=== PATIENT | male | born 1955 | race Caucasian/White ===

== ENCOUNTER → 2017-06-15 | Outpatient (CLI) | payer OTHER ==
[2017-06-15 12:55] LABS: ALT/SGPT 32 U/L (12-78); AST/SGOT 23 U/L (15-37); BLOOD UREA NITROGEN 12 mg/dl (7-18); BUN/CREATININE RATIO 11.8 (10-20); CALCIUM 8.6 mg/dl (8.5-10.1); CARBON DIOXIDE 30 mmol/L (21-32); CHLORIDE 94 mmol/L (98-107); GLUCOSE 92 mg/dl (70-99); POTASSIUM 4.2 mmol/L (3.5-5.1); SODIUM 130 mmol/L (136-145)
[2017-06-15 13:06] LABS: ALB/GLOB RATIO 1.3 (0.9-2); ALKALINE PHOSPHATASE 66 U/L (45-117); CHOLESTEROL 168 mg/dl (0-200); CHOLESTEROL/HDL RATIO 2.9; HDL CHOLESTEROL 57 mg/dl; LDL CHOLESTEROL CALCULATED 84 mg/dl; PROSTATE SPECIFIC ANTIGEN 0.612 ng/ml (0.000-4.000); TRIGLYCERIDES 134 mg/dl (0-150); VERY LOW DENSITY LIPOPROT CALC 27 mg/dl
== END | disposition home or self-care (01) ==
LOC: C.LABPBG 09:21
PROVIDERS: ATTEND Internal Medicine
DX: E87.1 Hypo-osmolality and hyponatremia (principal); I10 Essential (primary) hypertension; E78.5 Hyperlipidemia, unspecified; Z12.5 Encounter for screening for malignant neoplasm of prostate

== ENCOUNTER 2021-05-10 08:25 | Observation (INO) ==
[2021-05-10] MEDS ORDERED: ONDANSETRON INJ 2 MG/ML 2 ML VIAL IV STA (09:25)
[2021-05-10] MEDS ORDERED: LORazepam 1 MG/2 ML VIAL IV STA (09:25)
[2021-05-10] MEDS ORDERED: SODIUM CHLORIDE 0.9% 1000ML 1,000 ML IV SCH ×2 (09:26→13:15)
[2021-05-10 09:47] LABS: Hematocrit (blood only) 44.5 % (42-52); Immature Granulocytes # (auto) 0.02 K/uL (0.00-0.02); Immature Granulocytes % (auto) 0.2 %; Lymphocytes # (auto) 0.59 K/uL (1.2-3.4); Lymphocytes % (auto) 6.7 %; Mean Corpuscular Volume 86.2 fL (80-100); Mean Platelet Volume 11.3 fL (7.4-10.4); Monocytes # (auto) 0.28 K/uL (0.11-0.59); Monocytes % (auto) 3.2 %; Neutrophils # (auto) 7.86 K/uL (1.4-6.5); Neutrophils % (auto) 89.9 %; Platelet Count 167 K/uL (130-400); RDW Coefficient of Variation 12.5 % (11.5-14.5); RDW Standard Deviation 39.7 fL (36.4-46.3); Red Blood Count 5.16 M/uL (4.7-6.1); White Blood Count 8.75 K/uL (4.8-10.8)
--- NOTE | 2021-05-10 09:54 | Emergency Department Note ---
History of Present Illness General Chief complaint: Dizziness Stated complaint: DIZZINESS, NAUSEA Time Seen by Provider: 05/10/21 09:02 History of Present Illness Maximum Pain Intensity: 0 Patient is a 65-year-old male with past medical history significant for hypertension, dyslipidemia, history of chronic hyponatremia, and vitamin D deficiency who presents the emergency department for evaluation of acute dizziness that started yesterday around noon. He states that he was feeling wel l and was in his usual state of health until around noon yesterday. He was doing some work on a motorcycle in his garage, when all of a sudden he was having trouble walking. He states that he "could not walk in a straight line.". He had to hold onto his truck to move around the garage. He states it felt like he was drunk. He eventually made it back into the house, where he lie down in his recliner. While he was laying down, he felt fine, but anytime he got up and walked, he would get acutely dizzy, nauseous and vomit. This happened several times throughout the evening and persisted through this morning. There was no associated headache. No chest pain, palpitations or shortness of breath. No difficulty with speech, facial droop or extremity weakness. His is concerned he could be dehydrated because he has not been able to eat or drink. He does note that he has had very brief spells of dizziness on and off over the last 2 months. They only last him for a few minutes, and never make him nauseous or vomit. It has never lasted him this long. He did not try taking any medications for his symptoms yesterday. He did not take his morning medications today. He does not have any abdominal pain. Home Medications Medication Instructions Recorded Confirmed Type aspirin 81 mg tablet,delayed 81 mg PO QAM #90 tab 09/02/19 05/10/21 History release clobetasol 0.05 % topical cream See Rx Instructions .ROUTE 09/02/19 05/10/21 History .COMPLEX #60 gm atenolol 25 mg PO QAM 05/10/21 05/10/21 History atorvastatin 20 mg PO QAM 05/10/21 05/10/21 History cholecalciferol (vitamin D3) 2,000 units PO QAM 05/10/21 05/10/21 History hydrochlorothiazide 12.5 mg PO QAM 05/10/21 05/10/21 History lisinopril 10 mg PO QAM 05/10/21 05/10/21 History Allergies Allergy/AdvReac Type Severity Reaction Status Date / Time No Known Drug Allergies Allergy Verified 05/10/21 09:35 Past Med/Surg History Medical History Chronic hyponatremia Family history of colon cancer HTN (hypertension) Hyperlipidemia Systolic murmur Surgical History No history of previous surgery Family History Mother Colorectal cancer Father Diabetes Colorectal cancer Denies family history of Ovarian cancer Prostate cancer Myocardial infarction Breast cancer Social History Smoking Status: Never smoker Hx Alcohol Use: Yes Hx Substance Use: No Preferred Language: Ghanaian Communication Ability: Effective Visual Impairment: No Limitations Hearing Ability: Normal Motors And Controls Tester Required: No Beliefs That Will Affect Care: None marital status: Current Living Situation: Spouse current occupational status: retired Other Information That Helps Us Care for You: No Feels Safe at Home: Yes Safety Concerns: Feels Safe At This Time caffeine: Yes during the past year weight has: remained stable Dental Care, Regularly: No Physical Activity Frequency: 5-6 Times per Week Seatbelt Use: always Sunscreen Use: Yes Assistive Devices: None Review of Systems A total of 10 systems reviewed and were otherwise negative Physical Exam Vital Signs Vital Signs - 24 hr 05/10/21 08:28 05/10/21 09:50 05/10/21 10:00 Temperature 35.9 C L Temperature Source Temporal Artery Scan Pulse Rate 85 80 85 Pulse Rate from SpO2 Sensor 83 85 Pulse Rhythm Regular Pulse Strength Normal Respiratory Rate 16 16 12 Respiratory Effort / Characteristics Non-Labored Respiratory Depth Normal Respiratory Pattern Regular Blood Pressure 172/91 H 146/100 H Blood Pressure Mean 118 115 Blood Pressure Position Sitting Pulse Oximetry 99 97 98 Oxygen Delivery Method Room Air Room Air Room Air Sepsis Recent Fever Within 48 Hours No Sepsis New/Unexplained Change in Mental Status N/A Sepsis Action Taken by Nursing No Action Required 05/10/21 10:15 05/10/21 10:30 05/10/21 10:58 Temperature Temperature Source Pulse Rate 80 82 99 H Pulse Rate from SpO2 Sensor 80 82 97 H Pulse Rhythm Pulse Strength Respiratory Rate 16 18 17 Respiratory Effort / Characteristics Respiratory Depth Respiratory Pattern Blood Pressure 157/87 H Blood Pressure Mean 110 Blood Pressure Position Pulse Oximetry 97 96 97 Oxygen Delivery Method Room Air Room Air Sepsis Recent Fever Within 48 Hours Sepsis New/Unexplained Change in Mental Status Sepsis Action Taken by Nursing 05/10/21 11:00 05/10/21 11:01 05/10/21 11:15 Temperature Temperature Source Pulse Rate 90 90 81 Pulse Rate from SpO2 Sensor 90 91 H 82 Pulse Rhythm Pulse Strength Respiratory Rate 16 28 H 19 Respiratory Effort / Characteristics Respiratory Depth Respiratory Pattern Blood Pressure 152/81 H Blood Pressure Mean 104 Blood Pressure Position Pulse Oximetry 97 97 95 Oxygen Delivery Method Sepsis Recent Fever Within 48 Hours Sepsis New/Unexplained Change in Mental Status Sepsis Action Taken by Nursing 05/10/21 11:30 05/10/21 11:31 05/10/21 11:32 Temperature Temperature Source Pulse Rate 80 83 80 Pulse Rate from SpO2 Sensor 81 83 80 Pulse Rhythm Pulse Strength Respiratory Rate 21 23 15 Respiratory Effort / Characteristics Respiratory Depth Respiratory Pattern Blood Pressure 156/77 H 152/80 H Blood Pressure Mean 103 104 Blood Pressure Position Pulse Oximetry 97 98 97 Oxygen Delivery Method Sepsis Recent Fever Within 48 Hours Sepsis New/Unexplained Change in Mental Status Sepsis Action Taken by Nursing 05/10/21 11:45 05/10/21 12:00 05/10/21 12:01 Temperature Temperature Source Pulse Rate 79 78 77 Pulse Rate from SpO2 Sensor 79 78 78 Pulse Rhythm Pulse Strength Respiratory Rate 17 15 19 Respiratory Effort / Characteristics Respiratory Depth Respiratory Pattern Blood Pressure 161/72 H Blood Pressure Mean 101 Blood Pressure Position Pulse Oximetry 96 96 97 Oxygen Delivery Method Sepsis Recent Fever Within 48 Hours Sepsis New/Unexplained Change in Mental Status Sepsis Action Taken by Nursing 05/10/21 12:15 05/10/21 12:30 05/10/21 12:45 Temperature Temperature Source Pulse Rate 92 H 88 87 Pulse Rate from SpO2 Sensor 91 H 88 88 Pulse Rhythm Pulse Strength Respiratory Rate 16 20 17 Respiratory Effort / Characteristics Respiratory Depth Respiratory Pattern Blood Pressure Blood Pressure Mean Blood Pressure Position Pulse Oximetry 98 98 97 Oxygen Delivery Method Sepsis Recent Fever Within 48 Hours Sepsis New/Unexplained Change in Mental Status Sepsis Action Taken by Nursing 05/10/21 12:57 05/10/21 13:00 05/10/21 13:01 Temperature Temperature Source Pulse Rate 96 H 94 H 92 H Pulse Rate from SpO2 Sensor 94 H 92 H 92 H Pulse Rhythm Pulse Strength Respiratory Rate 17 21 24 Respiratory Effort / Characteristics Respiratory Depth Respiratory Pattern Blood Pressure 181/97 H 176/94 H Blood Pressure Mean 125 121 Blood Pressure Position Pulse Oximetry 99 98 97 Oxygen Delivery Method Sepsis Recent Fever Within 48 Hours Sepsis New/Unexplained Change in Mental Status Sepsis Action Taken by Nursing 05/10/21 13:15 05/10/21 13:30 05/10/21 13:31 Temperature Temperature Source Pulse Rate 93 H 84 85 Pulse Rate from SpO2 Sensor 94 H 84 86 Pulse Rhythm Pulse Strength Respiratory Rate 31 H 18 19 Respiratory Effort / Characteristics Respiratory Depth Respiratory Pattern Blood Pressure 150/85 H Blood Pressure Mean 106 Blood Pressure Position Pulse Oximetry 98 96 97 Oxygen Delivery Method Sepsis Recent Fever Within 48 Hours Sepsis New/Unexplained Change in Mental Status Sepsis Action Taken by Nursing 05/10/21 13:45 05/10/21 14:00 05/10/21 14:01 Temperature Temperature Source Pulse Rate 81 89 89 Pulse Rate from SpO2 Sensor 81 90 90 Pulse Rhythm Pulse Strength Respiratory Rate 23 20 17 Respiratory Effort / Characteristics Respiratory Depth Respiratory Pattern Blood Pressure 156/85 H Blood Pressure Mean 108 Blood Pressure Position Pulse Oximetry 96 98 97 Oxygen Delivery Method Sepsis Recent Fever Within 48 Hours Sepsis New/Unexplained Change in Mental Status Sepsis Action Taken by Nursing 05/10/21 14:15 05/10/21 14:30 05/10/21 15:00 Temperature Temperature Source Pulse Rate 96 H 88 97 H Pulse Rate from SpO2 Sensor 95 H 89 99 H Pulse Rhythm Pulse Strength Respiratory Rate 25 H 27 H 23 Respiratory Effort / Characteristics Respiratory Depth Respiratory Pattern Blood Pressure 153/77 H 173/97 H Blood Pressure Mean 102 122 Blood Pressure Position Pulse Oximetry 98 98 99 Oxygen Delivery Method Sepsis Recent Fever Within 48 Hours Sepsis New/Unexplained Change in Mental Status Sepsis Action Taken by Nursing CONSTITUTIONAL: Patient is a well-appearing 65-year-old male who is awake and alert and laying on the gurney in no acute distress. HEENT: Normocephalic, atraumatic. Pupils equal, round, reactive to light and accommodation. EOMs intact with a few beats of lateral nystagmus bilaterally. Sclera are anicteric. Tympanic membranes intact, with normal landmarks. External canals are clear. Oral and nasopharynx are clear. Mucous membranes ar e moist. NECK: Supple, nontender, no lymphadenopathy. Full range of motion. HEART: Regular rate and rhythm, soft systolic ejection murmur noted. LUNGS: Breath sounds equal and clear to auscultation without wheezes, rales, or rhonchi heard. ABDOMEN: Bowel sounds are present. Abdomen is soft, nontender, nondistended. No guarding or rebound. SKIN: No lesions or rash, normal skin turgor. EXTREMITIES: No cyanosis, edema, joint tenderness or swelling. No deformity. NEUROLOGICAL: Alert and oriented x4. Cranial nerves 2 through 12, sensation and strength grossly intact. Upper and lower extremity strength and DTRs are equal and symmetrical bilaterally. Gait is unable to be assessed due to the patient's acute complaint. Negative pronator drift. Finger to nose, finger to finger and rapid alternating movements are intact. The patient did become symptomatically dizzy when I sat him up from a laying down position to perform neuro exam. Course Course The patient was seen and assessed as above. Old records are reviewed. He presents the emergency department for evaluation of acute dizziness with associated nausea and vomiting that started yesterday. There does appear to be a positional component to his symptoms. IV lock was initiated and laboratory studies were collected. He was placed on the construction code administrator and EKG was performed. Chest x-ray and head CT/head and neck angios were obtained. CBC with differential, CMP, magnesium, troponin, coags were obtained. Patient was hydrated with normal saline solution and treated with Zofran for nausea and Ativan 1 mg IV for his dizziness. Laboratory studies note a normal white count at 8700. No anemia. Left shift noted but no bandemia. Coags are within normal limits. Sodium is slightly low at 130, this is chronic and appears stable for the patient. No other electrolyte abnormalities noted. BUN 18, creatinine 0.94. Transaminases are normal. Troponin is negative x1. Chest x-ray is unremarkable. Head CT is without acute mass, hematoma, shift or infarct. Head CTA is without significant stenosis, occlusion or aneurysm within the [place]. There is focal moderate to severe stenosis at the takeoff of the left internal carotid artery of about 70%, otherwise no significant stenosis occlusion or dissection identified in the right carotid or the vertebral arteries. The patient was reassessed. All laboratory diagnostic imaging studies were reviewed with him and his . He reported that while laying in bed, he was feeling improved, with no longer nauseous, but has not really been up to see if he is still dizzy. Discussed an ambulatory trial to see how he does. Nursing staff came to me after the patient had been walked, he did not do well and was still quite off balance and dizzy, which the patient endorsed. He was o rdered additional IV fluids and meclizine 25 mg orally. Reviewed the patient again with Dr. Lew, at this point it seems reasonable that he should be brought into the hospital for additional work-up and care. This was reviewed with the patient and his and they were in agreement. [facility]. Patient was reviewed with Dr. Banres, please refer to his H&P and orders for further information. Cardiac monitoring: An order was placed for continuous cardiac monitoring. The monitor shows a normal sinus rhythm in the 80s to low 90s. Administered Medications Discontinued Medications Sodium Chloride (Nss 1000ml) 1,000 mls @ 999 mls/hr IV .Q1H1M ADILENE Stop: 05/10/21 10:26 Last Infusion: 05/10/21 16:52 Dose: 0 mls/hr Documented by: [id number] Admin: 05/10/21 09:43 Dose: 999 mls/hr Documented by: [id number] Lorazepam (Ativan) 1 mg in 2 mls @ 2 mls/min IV NOW STA Stop: 05/10/21 09:26 Last Admin: 05/10/21 09:43 Dose: 2 mls/min Documented by: [id number] Sodium Chloride (Nss 1000ml) 1,000 mls @ 250 mls/hr IV .Q4H ADILENE Stop: 06/09/21 13:14 Last Infusion: 05/10/21 17:34 Dose: 0 mls/hr Documented by: [id number] Admin: 05/10/21 14:15 Dose: 250 mls/hr Documented by: [id number] Ioversol (Optiray 320 125ml) 120 ml IV ONCE ONE Stop: 05/10/21 10:50 Last Admin: 05/10/21 10:49 Dose: 120 ml Documented by: [id number] Meclizine HCl (Meclizine Hcl 25 Mg Tab) 25 mg PO NOW STA Stop: 05/10/21 13:04 Last Admin: 05/10/21 14:15 Dose: 25 mg Documented by: [id number] Ondansetron HCl (Ondansetron Inj 2 Mg/Ml 2 Ml Vial) 4 mg IV NOW STA Stop: 05/10/21 09:26 Last Admin: 05/10/21 09:43 Dose: 4 mg Documented by: [id number] Medical Decision Making Differential Diagnosis Differential diagnoses entertained benign positional vertigo, dehydration, hypovolemia, anemia, tumor, infection, hypoglycemia, electrolyte abnormalities, cardiac sources, intracerebral event, toxicologic, neurologic, as well as other pathologies. Medical Records Attestation: I reviewed the patient's medical records. Home Medications Current Medication List: was personally reviewed by me Laboratory Data Attestation: I reviewed the patient's lab results. Result diagrams: 05/10/21 09:38 05/10/21 09:38 Lab Results 05/10/21 05/10/21 05/10/21 Range/Units 09:38 09:38 09:38 WBC 8.75 (4.8-10.8) K/uL RBC 5.16 (4.7-6.1) M/uL Hgb 16.0 (14.0-18.0) g/dL Hct 44.5 (42-52) % MCV 86.2 (80-100) fL MCH 31.0 (25-34) pg MCHC 36.0 (32-36) g/dL RDW Std Deviation 39.7 (36.4-46.3) fL RDW Coeff of Juliana 12.5 (11.5-14.5) % Plt Count 167 (130-400) K/uL MPV 11.3 H (7.4-10.4) fL Immature Gran % (Auto) 0.2 % Neut % (Auto) 89.9 % Lymph % (Auto) 6.7 % Gulf % (Auto) 3.2 % Eos % (Auto) 0.0 % Baso % (Auto) 0.0 % Neut # (Auto) 7.86 H (1.4-6.5) K/uL Lymph # (Auto) 0.59 L (1.2-3.4) K/uL [place] # (Auto) 0.28 (0.11-0.59) K/uL Eos # (Auto) 0.00 (0-0.5) K/uL Baso # (Auto) 0.00 (0-0.2) K/uL Immature Gran # (Auto) 0.02 (0.00-0.02) K/uL PT 10.5 (9.0-12.0) Seconds INR 1.0 (0.9-1.1) APTT 23.8 (21.0-31.0) Seconds PTT Ratio 0.9 Sodium 130 L (136-145) mmol/L Potassium 3.9 (3.5-5.1) mmol/L Chloride 94 L (98-107) mmol/L Carbon Dioxide 27 (21-32) mmol/L Anion Gap 9.0 (3-11) BUN 18 (7-18) mg/dl Creatinine 0.94 (0.6-1.4) mg/dl Est Cr Clr Drug Dosing Not Reportable Est GFR ( Amer) 96.8 ml/min Est GFR (Non-Af Amer) 83.6 ml/min BUN/Creatinine Ratio 19.6 (10-20) Glucose 122 H (70-99) mg/dl Calcium 9.0 (8.5-10.1) mg/dl Magnesium 2.1 (1.8-2.4) mg/dl Total Bilirubin 1.0 (0.2-1) mg/dl AST 29 (15-37) U/L ALT 31 (12-78) U/L Alkaline Phosphatase 62 (45-117) U/L Troponin I < 0.015 (0-0.045) ng/ml Total Protein 7.9 (6.4-8.2) gm/dl Albumin 4.2 (3.4-5.0) gm/dl Globulin 3.7 (2.5-4.0) gm/dl Albumin/Globulin Ratio 1.1 (0.9-2) COVID-19 Eval Order SARS-CoV-2 (PCR) (Negative) 05/10/21 05/10/21 Range/Units 14:10 14:10 WBC (4.8-10.8) K/uL RBC (4.7-6.1) M/uL Hgb (14.0-18.0) g/dL Hct (42-52) % MCV (80-100) fL MCH (25-34) pg MCHC (32-36) g/dL RDW Std Deviation (36.4-46.3) fL RDW Coeff of Juliana (11.5-14.5) % Plt Count (130-400) K/uL MPV (7.4-10.4) fL Immature Gran % (Auto) % Neut % (Auto) % Lymph % (Auto) % Gulf % (Auto) % Eos % (Auto) % Baso % (Auto) % Neut # (Auto) (1.4-6.5) K/uL Lymph # (Auto) (1.2-3.4) K/uL [place] # (Auto) (0.11-0.59) K/uL Eos # (Auto) (0-0.5) K/uL Baso # (Auto) (0-0.2) K/uL Immature Gran # (Auto) (0.00-0.02) K/uL PT (9.0-12.0) Seconds INR (0.9-1.1) APTT (21.0-31.0) Seconds PTT Ratio Sodium (136-145) mmol/L Potassium (3.5-5.1) mmol/L Chloride (98-107) mmol/L Carbon Dioxide (21-32) mmol/L Anion Gap (3-11) BUN (7-18) mg/dl Creatinine (0.6-1.4) mg/dl Est Cr Clr Drug Dosing Est GFR ( Amer) ml/min Est GFR (Non-Af Amer) ml/min BUN/Creatinine Ratio (10-20) Glucose (70-99) mg/dl Calcium (8.5-10.1) mg/dl Magnesium (1.8-2.4) mg/dl Total Bilirubin (0.2-1) mg/dl AST (15-37) U/L ALT (12-78) U/L Alkaline Phosphatase (45-117) U/L Troponin I (0-0.045) ng/ml Total Protein (6.4-8.2) gm/dl Albumin (3.4-5.0) gm/dl Globulin (2.5-4.0) gm/dl Albumin/Globulin Ratio (0.9-2) COVID-19 Eval Order Covid19 at [facility] SARS-CoV-2 (PCR) NEGATIVE (Negative) Imaging Data Attestation: I personally reviewed and interpreted this imaging study as follows: Radiologist's Impression: Chest X-Ray 05/10/21 09:21 SINGLE VIEW CHEST CLINICAL HISTORY: Dizziness. FINDINGS: An AP, portable, upright chest radiograph is obtained. No prior studies are available for comparison at the time of dictation. The cardiomediastinal silhouette is unremarkable noting atherosclerotic c alcification of the thoracic aorta. There is mild bibasilar atelectasis. The lungs and pleural spaces are otherwise clear. No pneumothorax is seen. The bony thorax is grossly intact. IMPRESSION: No active disease in the chest. ACT 112: Negative or not required by law. Electronically signed by: Rodrigue Acosta M.D. 05/10/2021 9:[address] 05/10/21 09:[address], HEAD & NECK CTA HISTORY: Dizziness. Nausea. Stroke Like Symptoms TECHNIQUE: Multiaxial CT images of the head were performed both before and after the intravenous administration of contrast to evaluate the major cerebral vessels. Multiaxial CT images of the neck were also performed following the intravenous administration of contrast to evaluate the major cervical vessels. Maximum intensity projection images were also obtained. A dose lowering technique was utilized adhering to the principles of ALARA. COMPARISON: None. FINDINGS: NONCONTRAST HEAD CT: There is no mass, hematoma, midline shift, or acute infarct. Head CTA: Visualized intracranial internal carotid arteries, distal vertebral arteries, and basilar artery are widely patent. There is no significant stenosis, occlusion, or aneurysm seen within the bilateral ACAs, MCAs, or fugitive detective. Neck CTA: The aortic arch and proximal great vessels are widely patent. The bilateral common carotid arteries and bilateral vertebral arteries are widely patent. Moderate calcified plaque within the bilateral carotid bifurcations. No significant stenosis within the right internal carotid artery. Focal moderate to severe stenosis at the takeoff of the left internal carotid artery as seen on axial image 246. This demonstrates approximately 70% stenosis. This is secondary to the atherosclerotic plaque. The remaining portions of the left internal carotid artery are patent. IMPRESSION: 1. No acute intracranial abnormality. 2. No significant stenosis, occlusion, or aneurysm within the [place]. 3. Focal moderate to severe stenosis at the takeoff of the left internal carotid artery of approximately 70%. 4. No significant stenosis, occlusion, or dissection identified within the right carotid or vertebral arteries. ACT 112: Negative or not required by law. Electronically signed by: Darrick Castaneda M.D. 05/10/2021 11:20 AM Head CTA 05/10/21 09:[address], HEAD & NECK CTA HISTORY: Dizziness. Nausea. Stroke Like Symptoms TECHNIQUE: Multiaxial CT images of the head were performed both before and after the intravenous administration of contrast to evaluate the major cerebral vessels. Multiaxial CT images of the neck were also performed following the intravenous administration of contrast to evaluate the major cervical vessels. Maximum intensity projection images were also obtained. A dose lowering technique was utilized adhering to the principles of ALARA. COMPARISON: None. FINDINGS: NONCONTRAST HEAD CT: There is no mass, hematoma, midline shift, or acute infarct. Head CTA: Visualized intracranial internal carotid arteries, distal vertebral arteries, and basilar artery are widely patent. There is no significant stenosis, occlusion, or aneurysm seen within the bilateral ACAs, MCAs, or fugitive detective. Neck CTA: The aortic arch and proximal great vessels are widely patent. The bilateral common carotid arteries and bilateral vertebral arteries are widely patent. Moderate calcified plaque within the bilateral carotid bifurcations. No significant stenosis within the right internal carotid artery. Focal moderate to severe stenosis at the takeoff of the left internal carotid artery as seen on axial image 246. This demonstrates approximately 70% stenosis. This is secondary to the atherosclerotic plaque. The remaining portions of the left internal carotid artery are patent. IMPRESSION: 1. No acute intracranial abnormality. 2. No significant stenosis, occlusion, or aneurysm within the [place]. 3. Focal moderate to severe stenosis at the takeoff of the left internal carotid artery of approximately 70%. 4. No significant stenosis, occlusion, or dissection identified within the right carotid or vertebral arteries. ACT 112: Negative or not required by law. Electronically signed by: Darrick Castaneda M.D. 05/10/2021 11:20 AM Neck CTA 05/10/21 09:[address], HEAD & NECK CTA HISTORY: Dizziness. Nausea. Stroke Like Symptoms TECHNIQUE: Multiaxial CT images of the head were performed both before and after the intravenous administration of contrast to evaluate the major cerebral vessels. Multiaxial CT images of the neck were also performed following the intravenous administration of contrast to evaluate the major cervical vessels. Maximum intensity projection images were also obtained. A dose lowering technique was utilized adhering to the principles of ALARA. COMPARISON: None. FINDINGS: NONCONTRAST HEAD CT: There is no mass, hematoma, midline shift, or acute infarct. Head CTA: Visualized intracranial internal carotid arteries, distal vertebral arteries, and basilar artery are widely patent. There is no significant stenosis, occlusion, or aneurysm seen within the bilateral ACAs, MCAs, or fugitive detective. Neck CTA: The aortic arch and proximal great vessels are widely patent. The bilateral common carotid arteries and bilateral vertebral arteries are widely patent. Moderate calcified plaque within the bilateral carotid bifurcations. No significant stenosis within the right internal carotid artery. Focal moderate to severe stenosis at the takeoff of the left internal carotid artery as seen on axial image 246. This demonstrates approximately 70% stenosis. This is secondary to the atherosclerotic plaque. The remaining portions of the left internal carotid artery are patent. IMPRESSION: 1. No acute intracranial abnormality. 2. No significant stenosis, occlusion, or aneurysm within the [place]. 3. Focal moderate to severe stenosis at the takeoff of the left internal carotid artery of approximately 70%. 4. No significant stenosis, occlusion, or dissection identified within the right carotid or vertebral arteries. ACT 112: Negative or not required by law. Electronically signed by: Darrick Castaneda M.D. 05/10/2021 11:20 AM ECG Data Attestation: I personally reviewed and interpreted this ECG as follows: Indication: + other (Dizziness) Rate (beats per minute): 87 Rhythm: + normal sinus ECG [place]: + Normal ECG ST segments: no ST depression, no ST elevation and no T-wave inversions Comparison ECG Date: no prior available MDM Narrative See ED course Impression & Plan Dizziness, Nausea & vomiting, Carotid stenosis Discharge Plan Visit Data Chief Complaint: Dizziness Stated Complaint: DIZZINESS, NAUSEA ED Provider: Matthias Lew ED Midlevel Provider: Delroy Arboleda Discharge Problem: Dizziness, Nausea & vomiting, Carotid stenosis Patient Disposition: Admitted As Inpatient Discharge Instructions Interventions: ED Discharge Assessment Last Done: 05/10/21 16:27
--- NOTE | 2021-05-10 09:59 | XRay Report ---
SINGLE VIEW CHEST CLINICAL HISTORY: Dizziness. FINDINGS: An AP, portable, upright chest radiograph is obtained. No prior studies are available for c omparison at the time of dictation. The cardiomediastinal silhouette is unremarkable noting atherosc lerotic calcification of the thoracic aorta. There is mild bibasilar atelectasis. The lungs and pleur al spaces are otherwise clear. No pneumothorax is seen. The bony thorax is grossly intact. IMPRESSION: No active disease in the chest. ACT 112: Negative or not required by law. Electronically signed by: Rodrigue Acosta M.D. 05/10/2021 9:58 AM
[2021-05-10 10:03] LABS: Partial Thromboplastin Ratio 0.9; Partial Thromboplastin Time 23.8 Seconds (21.0-31.0); Prothrombin Time 10.5 Seconds (9.0-12.0)
[2021-05-10 10:04] LABS: Alanine Aminotransferase 31 U/L (12-78); Albumin Level 4.2 gm/dl (3.4-5.0); Aspartate Aminotransferase 29 U/L (15-37); BUN Creatinine Ratio 19.6 (10-20); Blood Urea Nitrogen 18 mg/dl (7-18); Carbon Dioxide 27 mmol/L (21-32); Chloride 94 mmol/L (98-107); Est GFR (African American) 96.8 ml/min; Est GFR (Non-African American) 83.6 ml/min; Glucose 122 mg/dl (70-99); Magnesium 2.1 mg/dl (1.8-2.4); Potassium 3.9 mmol/L (3.5-5.1); Sodium 130 mmol/L (136-145)
[2021-05-10 10:08] LABS: Albumin Globulin Ratio 1.1 (0.9-2); Alkaline Phosphatase 62 U/L (45-117); Globulin 3.7 gm/dl (2.5-4.0); Total Protein 7.9 gm/dl (6.4-8.2); Troponin I < 0.015 ng/ml (0-0.045)
--- NOTE | 2021-05-10 10:27 | Emergency Department Note ---
ED Visit Note I have seen and examined this patient with Sherine Solitario and generally agree with the treatment plan as discussed. . : Carotid stenosis Qualifiers: Laterality: left Qualified Code(s): I65.22 - Occlusion and stenosis of left carotid artery
[2021-05-10] MEDS ORDERED: OPTIRAY 320 125ml IV ONE (10:49)
--- NOTE | 2021-05-10 11:21 | CT Scan Report ---
NONCONTRAST HEAD CT, HEAD & NECK CTA HISTORY: Dizziness. Nausea. Stroke Like Symptoms TECHNIQUE: Multiaxial CT images of the head were performed both before and after the intravenous admi nistration of contrast to evaluate the major cerebral vessels. Multiaxial CT images of the neck were also performed following the intravenous administration of contrast to evaluate the major cervical ve ssels. Maximum intensity projection images were also obtained. A dose lowering technique was utilized adhering to the principles of ALARA. COMPARISON: None. FINDINGS: NONCONTRAST HEAD CT: There is no mass, hematoma, midline shift, or acute infarct. Head CTA: Visualized intracranial internal carotid arteries, distal vertebral arteries, and basilar a rtery are widely patent. There is no significant stenosis, occlusion, or aneurysm seen within the [place] ateral ACAs, MCAs, or tool room attendant. Neck CTA: The aortic arch and proximal great vessels are widely patent. The bilateral common carotid arteries and bilateral vertebral arteries are widely patent. Moderate calcified plaque within the bi lateral carotid bifurcations. No significant stenosis within the right internal carotid artery. Focal moderate to severe stenosis at the takeoff of the left internal carotid artery as seen on axial imag e 246. This demonstrates approximately 70% stenosis. This is secondary to the atherosclerotic plaque. The remaining portions of the left internal carotid artery are patent. IMPRESSION: 1. No acute intracranial abnormality. 2. No significant stenosis, occlusion, or aneurysm within the [place]. 3. Focal moderate to severe stenosis at the takeoff of the left internal carotid artery of approximat padmini 70%. 4. No significant stenosis, occlusion, or dissection identified within the right carotid or vertebral arteries. ACT 112: Negative or not required by law. Electronically signed by: Darrick Castaneda M.D. 05/10/2021 11:20 AM
--- NOTE | 2021-05-10 11:21 | CT Scan Report ---
NONCONTRAST HEAD CT, HEAD & NECK CTA HISTORY: Dizziness. Nausea. Stroke Like Symptoms TECHNIQUE: Multiaxial CT images of the head were performed both before and after the intravenous admi nistration of contrast to evaluate the major cerebral vessels. Multiaxial CT images of the neck were also performed following the intravenous administration of contrast to evaluate the major cervical ve ssels. Maximum intensity projection images were also obtained. A dose lowering technique was utilized adhering to the principles of ALARA. COMPARISON: None. FINDINGS: NONCONTRAST HEAD CT: There is no mass, hematoma, midline shift, or acute infarct. Head CTA: Visualized intracranial internal carotid arteries, distal vertebral arteries, and basilar a rtery are widely patent. There is no significant stenosis, occlusion, or aneurysm seen within the [place] ateral ACAs, MCAs, or plisse machine operator. Neck CTA: The aortic arch and proximal great vessels are widely patent. The bilateral common carotid arteries and bilateral vertebral arteries are widely patent. Moderate calcified plaque within the bi lateral carotid bifurcations. No significant stenosis within the right internal carotid artery. Focal moderate to severe stenosis at the takeoff of the left internal carotid artery as seen on axial imag e 246. This demonstrates approximately 70% stenosis. This is secondary to the atherosclerotic plaque. The remaining portions of the left internal carotid artery are patent. IMPRESSION: 1. No acute intracranial abnormality. 2. No significant stenosis, occlusion, or aneurysm within the [place]. 3. Focal moderate to severe stenosis at the takeoff of the left internal carotid artery of approximat padmini 70%. 4. No significant stenosis, occlusion, or dissection identified within the right carotid or vertebral arteries. ACT 112: Negative or not required by law. Electronically signed by: Darrick Castaneda M.D. 05/10/2021 11:20 AM
--- NOTE | 2021-05-10 11:21 | CT Scan Report ---
NONCONTRAST HEAD CT, HEAD & NECK CTA HISTORY: Dizziness. Nausea. Stroke Like Symptoms TECHNIQUE: Multiaxial CT images of the head were performed both before and after the intravenous admi nistration of contrast to evaluate the major cerebral vessels. Multiaxial CT images of the neck were also performed following the intravenous administration of contrast to evaluate the major cervical ve ssels. Maximum intensity projection images were also obtained. A dose lowering technique was utilized adhering to the principles of ALARA. COMPARISON: None. FINDINGS: NONCONTRAST HEAD CT: There is no mass, hematoma, midline shift, or acute infarct. Head CTA: Visualized intracranial internal carotid arteries, distal vertebral arteries, and basilar a rtery are widely patent. There is no significant stenosis, occlusion, or aneurysm seen within the [place] ateral ACAs, MCAs, or fiscal accountant. Neck CTA: The aortic arch and proximal great vessels are widely patent. The bilateral common carotid arteries and bilateral vertebral arteries are widely patent. Moderate calcified plaque within the bi lateral carotid bifurcations. No significant stenosis within the right internal carotid artery. Focal moderate to severe stenosis at the takeoff of the left internal carotid artery as seen on axial imag e 246. This demonstrates approximately 70% stenosis. This is secondary to the atherosclerotic plaque. The remaining portions of the left internal carotid artery are patent. IMPRESSION: 1. No acute intracranial abnormality. 2. No significant stenosis, occlusion, or aneurysm within the [place]. 3. Focal moderate to severe stenosis at the takeoff of the left internal carotid artery of approximat padmini 70%. 4. No significant stenosis, occlusion, or dissection identified within the right carotid or vertebral arteries. ACT 112: Negative or not required by law. Electronically signed by: Darrick Castaneda M.D. 05/10/2021 11:20 AM
[2021-05-10] MEDS ORDERED: MECLIZINE HCL 25 MG TAB PO STA (13:03)
--- NOTE | 2021-05-10 15:11 | History & Physical Report ---
Date of Service May 10, 2021 Assessment & Plan (1) Dizziness: Suspect BPPV, patient appears to be stable Placed in monitored observation Orthostatics PT/OT evaluation Continue meclizine I will ask neurology to evaluate for further recommendations (2) Carotid stenosis: 70% stenosis of the left ICA on CT angiogram, suspect this is incidental and not primary issue Patient on low-dose aspirin along with atorvastatin I will check fasting lipids Will need outpatient surveillance of this (3) HTN (hypertension): Continue atenolol, lisinopril and hydrochlorothiazide Consider medication judgment patient remains hypertensive (4) Hyperlipidemia: Check fasting lipids Continue atorvastatin (5) Chronic hyponatremia: Sodium at 130 today, this appears to be baseline going back to June 2018 We will continue to monitor Patient is on normal saline, okay to discontinue History of Present Illness Chief Complaint: vertigo Primary Care Provider: Dominic Douglas MD This is a 65-year-old male with past medical history of hypertension, hyperlipidemia, chronic hyponatremia that presents today complaining of vertigo. Patient is pleasant a good story. Patient states that he was doing well until earlier today. He started having issues with vertigo after working outside. He went to the house and seemed to worsen. Became severe enough that he had multiple episodes of nausea with vomiting. I became concerned to come to the emergency room. He denies any focal neurological findings, headache, or visual disturbance. He notes that his vertigo is worse after moving his head but seems to be better when he lies still. He denies any recent illness and has been compliant with his medications. In the emergency room his vitals been stable other than some hypertension at 156/85. He was given lorazepam, Antivert, and Zofran without resolution of his vertigo. We are now being asked to place him in observation for further work-up and treatment. Allergies Allergy/AdvReac Type Severity Reaction Status Date / Time No Known Drug Allergies Allergy Verified 05/10/21 09:35 Home Medications Medication Instructions Recorded Confirmed Type aspirin 81 mg tablet,delayed 81 mg PO QAM #90 tab 09/02/19 05/10/21 History release clobetasol 0.05 % topical cream See Rx Instructions .ROUTE 09/02/19 05/10/21 History .COMPLEX #60 gm atenolol 25 mg PO QAM 05/10/21 05/10/21 History atorvastatin 20 mg PO QAM 05/10/21 05/10/21 History cholecalciferol (vitamin D3) 2,000 units PO QAM 05/10/21 05/10/21 History hydrochlorothiazide 12.5 mg PO QAM 05/10/21 05/10/21 History lisinopril 10 mg PO QAM 05/10/21 05/10/21 History Past Med/Surg History Medical History Chronic hyponatremia Family history of colon cancer HTN (hypertension) Hyperlipidemia Systolic murmur Surgical History No history of previous surgery Family History Mother Colorectal cancer Father Diabetes Colorectal cancer Denies family history of Ovarian cancer Prostate cancer Myocardial infarction Breast cancer Social History Smoking Status: Never smoker Hx Alcohol Use: Yes Hx Substance Use: No Preferred Language: Azeri Visual Impairment: No Limitations Hearing Ability: Normal Furniture Refinisher Required: No marital status: Current Living Situation: Spouse current occupational status: retired Feels Safe at Home: Yes caffeine: Yes during the past year weight has: remained stable Dental Care, Regularly: No Physical Activity Frequency: 5-6 Times per Week Seatbelt Use: always Sunscreen Use: Yes Review of Systems Constitutional: no fever, no chills, no weakness, no weight loss and no weight gain Eyes: as per Subjective / HPI Respiratory: no cough, no chest congestion, no dyspnea and no dyspnea on exertion Cardiovascular: no chest pain, no orthopnea, no palpitations, no lightheadedness and no edema Gastrointestinal: no abdominal pain, no nausea, no vomiting, no constipation and no diarrhea/loose stools Musculoskeletal: no back pain, no neck pain, no joint pain, no stiffness and no myalgia Integumentary: no rash Neurologic: + unsteadiness and + dizziness; no gait abnormality, no falls, no generalized weakness, no lack of coordination, no abnormal movements and no abnormal speech Physical Exam Constitutional: cooperative; no acute distress Neck: trachea midline, no thyromegaly Respiratory: normal respiratory effort Auscultation: lungs clear to auscultation bilaterally; no crackles, no rales, no rhonchi and no wheezes Cardiovascular: Rate/Rhythm: regular rate and regular rhythm Heart Sounds: normal S1 and normal S2 Gastrointestinal (Abdomen): Inspection/Auscultation: abdomen normal to inspection Percussion/Palpation: abdomen soft; abdomen nontender, no guarding, abdomen not rigid and no hepatosplenomegaly Skin: no rashes, warm and dry Results & Data Results & Data ([facility]) Vital Signs (Past 12 Hours) Vital Signs Temp Pulse Resp BP Pulse Ox 05/10/21 14:15 96 H 25 H 98 05/10/21 14:01 89 17 97 05/10/21 14:00 89 20 156/85 H 98 05/10/21 13:45 81 23 96 05/10/21 13:31 85 19 97 05/10/21 13:30 84 18 150/85 H 96 05/10/21 13:15 93 H 31 H 98 05/10/21 13:01 92 H 24 97 05/10/21 13:00 94 H 21 176/94 H 98 05/10/21 12:57 96 H 17 181/97 H 99 05/10/21 12:45 87 17 97 05/10/21 12:30 88 20 98 05/10/21 12:15 92 H 16 98 05/10/21 12:01 77 19 97 05/10/21 12:00 78 15 161/72 H 96 05/10/21 11:45 79 17 96 05/10/21 11:32 80 15 97 05/10/21 11:31 83 23 152/80 H 98 05/10/21 11:30 80 21 156/77 H 97 05/10/21 11:15 81 19 95 05/10/21 11:01 90 28 H 97 05/10/21 11:00 90 16 152/81 H 97 05/10/21 10:58 99 H 17 97 05/10/21 10:30 82 18 157/87 H 96 05/10/21 10:15 80 16 97 05/10/21 10:00 85 12 146/100 H 98 05/10/21 09:50 80 16 172/91 H 97 05/10/21 08:28 35.9 C L 85 16 99 Diagnostic Findings HISTORY: Dizziness. Nausea. Stroke Like Symptoms TECHNIQUE: Multiaxial CT images of the head were performed both before and after the intravenous administration of contrast to evaluate the major cerebral vessels. Multiaxial CT images of the neck were also performed following the intravenous administration of contrast to evaluate the major cervical vessels. Maximum intensity projection images were also obtained. A dose lowering technique was utilized adhering to the principles of ALARA. COMPARISON: None. FINDINGS: NONCONTRAST HEAD CT: There is no mass, hematoma, midline shift, or acute infarct. Head CTA: Visualized intracranial internal carotid arteries, distal vertebral arteries, and basilar artery are widely patent. There is no significant stenosis, occlusion, or aneurysm seen within the bilateral ACAs, MCAs, or production technologist. Neck CTA: The aortic arch and proximal great vessels are widely patent. The bilateral common carotid arteries and bilateral vertebral arteries are widely patent. Moderate calcified plaque within the bilateral carotid bifurcations. No significant stenosis within the right internal carotid artery. Focal moderate to severe stenosis at the takeoff of the left internal carotid artery as seen on axial image 246. This demonstrates approximately 70% stenosis. This is secondary to the atherosclerotic plaque. The remaining portions of the left internal carotid artery are patent. IMPRESSION: 1. No acute intracranial abnormality. 2. No significant stenosis, occlusion, or aneurysm within the [place]. 3. Focal moderate to severe stenosis at the takeoff of the left internal carotid artery of approximately 70%. 4. No significant stenosis, occlusion, or dissection identified within the right carotid or vertebral arteries. PG Care Time/CCT Total # of Minutes Spent Total Time Spent with Patient: Total time spent is greater than 50% in coordination of care (as documented) at patient's floor/unit and/or counseling patient: Coding Level of Care Code 96933 Initial Inpt Care Lvl 3 Diagnoses Dizziness R42 Carotid stenosis I65.29 HTN (hypertension) I10 Hypertension type: essential hypertension Hyperlipidemia E78.00; E78.0 Hyperlipidemia type: pure hypercholesterolemia Chronic hyponatremia E87.1 (1) HTN (hypertension) Hypertension type: essential hypertension Qualified Code(s): I10 - Essential (primary) hypertension (2) Hyperlipidemia Hyperlipidemia type: pure hypercholesterolemia Qualified Code(s): E78.00 - Pure hypercholesterolemia, unspecified; E78.0 - Pure hypercholesterolemia
[2021-05-10] MEDS ORDERED: ACETAMINOPHEN 325 MG TAB PO PRN (16:46)
[2021-05-10] MEDS ORDERED: ONDANSETRON INJ 2 MG/ML 2 ML VIAL IV PRN (16:46)
[2021-05-10] MEDS: MECLIZINE HCL 25 MG TAB PO SCH ×2 (18:12→21:53)
--- NOTE | 2021-05-11 05:52 | Electrocardiogram Report ---
Test Reason : Blood Pressure : / mmHG Vent. Rate : 087 BPM Atrial Rate : 087 BPM P-R Int : 142 ms QRS Dur : 096 ms QT Int : 370 ms P-R-T Axes : 050 000 061 degrees QTc Int : 445 ms Poor data quality, interpretation may be adversely affected Normal sinus rhythm Possible Left atrial enlargement Borderline ECG No previous ECGs available Confirmed by Murray Baez ([id number]) on 05/11/2021 5:52:23 AM Referred By: Confirmed By:Murray Baez
[2021-05-11 06:00] LABS: Basophils # (auto) 0.03 K/uL (0-0.2); Basophils % (auto) 0.5 %; Eosinophils # (auto) 0.04 K/uL (0-0.5); Eosinophils % (auto) 0.6 %; Hematocrit (blood only) 39.2 % (42-52); Hemoglobin 13.5 g/dL (14.0-18.0); Immature Granulocytes # (auto) 0.01 K/uL (0.00-0.02); Immature Granulocytes % (auto) 0.2 %; Lymphocytes # (auto) 1.75 K/uL (1.2-3.4); Lymphocytes % (auto) 27.8 %; Mean Corpuscular Hemoglobin 30.3 pg (25-34); Mean Corpuscular Hgb Conc 34.4 g/dL (32-36); Mean Corpuscular Volume 88.1 fL (80-100); Monocytes # (auto) 0.64 K/uL (0.11-0.59); Monocytes % (auto) 10.2 %; Neutrophils # (auto) 3.83 K/uL (1.4-6.5); Neutrophils % (auto) 60.7 %; Platelet Count 139 K/uL (130-400); RDW Coefficient of Variation 12.8 % (11.5-14.5); RDW Standard Deviation 41.4 fL (36.4-46.3); Red Blood Count 4.45 M/uL (4.7-6.1)
[2021-05-11 06:27] LABS: BUN Creatinine Ratio 14.1 (10-20); Calcium 8.2 mg/dl (8.5-10.1); Est GFR (African American) 89.9 ml/min; Est GFR (Non-African American) 77.5 ml/min; Magnesium 2.1 mg/dl (1.8-2.4); Potassium 4.4 mmol/L (3.5-5.1)
--- NOTE | 2021-05-11 08:49 | Neurology Consultation ---
Date of Consultation May 11, 2021 Assessment & Plan (1) Vertigo: (2) Carotid stenosis: Patient's presenting symptoms seem most consistent with benign positional paroxysmal vertigo. He is currently asymptomatic. He does have an incidental 70% stenosis at the takeoff of the left internal carotid artery. History notable for hypertension and hyperlipidemia. He takes daily low-dose aspirin and atorvastatin as an outpatient. I do not think the observed 70% stenosis of the left internal carotid artery would be responsible for his presentation. The finding is likely incidental. However, I would like him to have a brain MRI completed to exclude a possible small acute infarct. If an infarct is identified would then also recommend an echocardiogram with bubble study as well as 30-day mobile cardiac outpatient telemetry. Continue with aspirin 81 mg/day, atorvastatin, and his antihypertensives. Meclizine as needed is reasonable. If his vertigo recurs would also consider physical therapy. I will make further recommendations if necessary pending completion of his MRI. If MRI is negative patient would not need additional outpatient neurologic care. However, the 70% stenosis of the left internal carotid artery will need monitoring with ultrasound going forward. His PCP should be able to follow this issue. If, however, the brain MRI does show an acute infarct within the left MCA territory with then recommend a consultation with vascular surgery. History of Present Illness Reason for Consultation: Vertigo Requesting Physician: Avila Barnes DO Attending Physician: Mulugeta Thomas DO History of Present Illness The patient is a 65-year-old male with a chief complaint of sudden onset vertigo that occurred while working on a motorcycle in his garage. He had difficulty walking a straight line and had a perception of motion with associated nausea and emesis. Symptoms not clearly triggered by position changes and persisted during his assessment in the emergency department. Patient does not recall experiencing any associated diplopia, dysarthria, focal weakness, or significant headache. He has not had similar symptoms previously. His symptoms are completely resolved this morning. He did have a CT of the head including CT angiography of the head and neck completed. No evidence of hemorrhage or acute or subacute stroke. There is a 70% stenosis at the takeoff of the left internal carotid artery. I reviewed the images as well as the radiologist interpretation of these tests and agree. Past medical history notable for hyperlipidemia and hypertension. Patient takes daily low-dose aspirin, atenolol, lisinopril, hydrochlorothiazide, and atorvastatin as an outpatient. He does not have any other specific complaints. Again, he is currently asymptomatic and expresses an interest in going back home. Allergies Allergy/AdvReac Type Severity Reaction Status Date / Time No Known Drug Allergies Allergy Verified 05/10/21 09:35 Home Medications Medication Instructions Recorded Confirmed Type aspirin 81 mg tablet,delayed 81 mg PO QAM #90 tab 09/02/19 05/10/21 History release clobetasol 0.05 % topical cream See Rx Instructions .ROUTE 09/02/19 05/10/21 History .COMPLEX #60 gm atenolol 25 mg PO QAM 05/10/21 05/10/21 History atorvastatin 20 mg PO QAM 05/10/21 05/10/21 History cholecalciferol (vitamin D3) 2,000 units PO QAM 05/10/21 05/10/21 History hydrochlorothiazide 12.5 mg PO QAM 05/10/21 05/10/21 History lisinopril 10 mg PO QAM 05/10/21 05/10/21 History Patient History Medical History Chronic hyponatremia Family history of colon cancer HTN (hypertension) Hyperlipidemia Systolic murmur Surgical History No history of previous surgery Family History Mother Colorectal cancer Father Diabetes Colorectal cancer Denies family history of Ovarian cancer Prostate cancer Myocardial infarction Breast cancer Social History Smoking Status: Never smoker Hx Alcohol Use: Yes Hx Substance Use: No Preferred Language: Indonesian Communication Ability: Effective Visual Impairment: No Limitations Hearing Ability: Normal 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 Beliefs That Will Affect Care: None marital status: Current Living Situation: Spouse current occupational status: retired Other Information That Helps Us Care for You: No Feels Safe at Home: Yes Safety Concerns: Feels Safe At This Time caffeine: Yes during the past year weight has: remained stable Dental Care, Regularly: No Physical Activity Frequency: 5-6 Times per Week Seatbelt Use: always Sunscreen Use: Yes Assistive Devices: None Review of Systems Constitutional: no fever and no chills Eyes: no blind spots and no diplopia Ear, Nose, Mouth, Throat: no ear pain, no tinnitus and no hearing loss Respiratory: no cough and no dyspnea Cardiovascular: no chest pain and no palpitations Gastrointestinal: as per Subjective / HPI, + nausea and + vomiting Genitourinary: no dysuria Musculoskeletal: no neck pain and no myalgia Integumentary: no rash and no lesions Neurologic: as per Subjective / HPI; no localized weakness, no loss of sensation, no tremor(s), no headache(s), no confusion and no memory loss Psychiatric: no depression and no anxiety Hematologic / Lymphatic: no easy bleeding and no easy bruising Exam (Neuro) Constitutional: well developed and well nourished; no acute distress Eyes: normal visual wiley by confrontation, PERRL, normal accommodation and EOM intact bilaterally; no fundoscopic abnormality, no nystagmus and no papilledema Cardiovascular: Vessels: normal carotid upstroke; no carotid bruit Neurologic: Oriented to:: Person, Place and Time Memory: Short Term Intact and Remote Intact Attention: Span Intact and Concentration Intact Language: Naming Objects and Repeating Phrases Speech Fluency: negative Dysarthria Speech Aphasia: negative Aphasia Fund of Knowledge: Current Events, Past History and Vocabulary Cranial Nerves: Normal II (Visual wiley full to confrontation, visual acuity normal), III, IV, (Pupils equal round reactive to light and accommodation, eye movements normal), V (Facial sensation intact), VII (There is no facial droop or weakness), VIII (Hearing intact), IX, X (Palate elevates to midline), XI (Shoulder shrug intact) and XII (Tongue protrudes to midline) Motor Strength: Normal Lower Extremities and Normal Upper Extremities; negative Pronator Drift Motor Tone: Normal Lower Extremities and Normal Upper Extremities Muscle Bulk/Involuntary Movements: No Involuntary Movements; negative Muscle Atrophy Sensation: Light Touch Intact, Pain/Temperature Intact, Vibration Intact and Proprioception Intact Coordination: Normal; negative Limited Balance, Dysdiadochokinesia, Finger-Nose Abnormal and Heel-[place] Abnormal Deep Tendon Reflexes: Rt Triceps: 2+, Lt Triceps: 2+, Rt Biceps: 2+, Lt Biceps: 2+, Rt Brachioradialis: 2+, Lt Brachioradialis: 2+, Rt Patellar: 2+, Lt Patellar: 2+, Rt Ankle: 2+ and Lt Ankle: 2+ Special Tests: negative Babinski Present Gait: Normal Station an d Gait Results & Data ([facility]) Vital Signs (Past 12 Hours) Vital Signs Temp Pulse Pulse Resp BP Pulse Ox 05/11/21 03:23 36.7 C 108 H 20 140/81 97 05/11/21 02:17 94 H 05/10/21 22:20 36.7 C 72 20 152/79 H 98 Laboratory Results WBC 6.30, hemoglobin 13.5, hematocrit 39.2, platelet count 139, sodium 133, potassium 4.4, BUN 14, creatinine 1.00, glucose 85, calcium 8.2, magnesium 2.1, troponin less than 0.015, triglycerides 88, cholesterol 169, LDL 92, VLDL 18, HDL [address] of the head and CT angiography of the head and neck are as described in the history of present illness. I reviewed the images as well as the radiologist's interpretation of these tests. An electrocardiogram reveals a normal sinus rhythm, 87 bpm. Coding Level of Care Code 88950 Initial Inpt Care Lvl 3 Diagnoses Vertigo R42 Carotid stenosis I65.22 Laterality: left (1) Carotid stenosis Laterality: left Qualified Code(s): I65.22 - Occlusion and stenosis of left carotid artery
[2021-05-11] MEDS: MECLIZINE HCL 25 MG TAB PO SCH (08:50)
[2021-05-11] MEDS ORDERED: ATENOLOL 25 MG TABLET PO SCH (09:00)
[2021-05-11] MEDS ORDERED: CHOLECALCIFEROL 1,000 UNITS 25 MCG TAB PO SCH (09:00)
[2021-05-11] MEDS ORDERED: ATORVASTATIN 20 MG TAB PO SCH (09:00)
[2021-05-11] MEDS ORDERED: hydroCHLOROthiazide 25 MG TAB PO SCH (09:00)
[2021-05-11] MEDS ORDERED: ASPIRIN 81 MG ECTAB PO SCH (09:00)
[2021-05-11] MEDS ORDERED: lisinopril 10 MG TAB PO SCH (09:00)
--- NOTE | 2021-05-11 10:36 | Magnetic Resonance Report ---
Brain MRI WITHOUT CONTRAST HISTORY: vertigo, r/o CVA TECHNIQUE: Multiplanar multisequence MRI of the brain was performed without the use of contrast. COMPARISON STUDY: Head CT 05/10/2021. FINDINGS: There are no areas of restricted diffusion to suggest acute infarction. The midline structu res are intact. The paranasal sinuses are clear. The mastoid air cells are clear. The ventricles and sulci are within normal limits for age. There is no mass, hematoma, midline shift. The major vascular flow-voids at the skull base are well maintained. There are few scattered punctate foci of T2 hyperi ntensity seen within the periventricular and subcortical white matter of the supratentorial brain. Th deann are of doubtful clinical significance and favor minimal microvascular ischemic change. IMPRESSION: No acute intracranial abnormality. ACT 112: Negative or not required by law. Electronically signed by: Darrick Castaneda M.D. 05/11/2021 10:35 AM
--- NOTE | 2021-05-11 11:02 | Discharge Summary ---
Date of Service May 11, 2021 Admission HPI Per Admitting Provider This is a 65-year-old male with past medical history of hypertension, hyperlipidemia, chronic hyponatremia that presents today complaining of vertigo. Patient is pleasant a good story. Patient states that he was doing well until earlier today. He started having issues with vertigo after working outside. He went to the house and seemed to worsen. Became severe enough that he had multiple episodes of nausea with vo miting. I became concerned to come to the emergency room. He denies any focal neurological findings, headache, or visual disturbance. He notes that his vertigo is worse after moving his head but seems to be better when he lies still. He denies any recent illness and has been compliant with his medications. In the emergency room his vitals been stable other than some hypertension at 156/85. He was given lorazepam, Antivert, and Zofran without resolution of his vertigo. We are now being asked to place him in observation for further work-up and treatment. Principal Diagnosis Benign positional vertigo Discharge Exam Constitutional WD/WN, vitals as above Eyes PERRL, conjunctivae normal, anicteric sclerae ENMT external ear and nose normal, oropharynx normal Neck trachea midline, no thyromegaly Respiratory normal respiratory effort, lungs clear to auscultation Cardiovascular RRR, no murmur, no edema Gastrointestinal (Abdomen) normal bowel sounds, soft, nontender, no hepatosplenomegaly Musculoskeletal no cyanosis or clubbing, extremities motor strength 5/5 Skin no rashes, warm and dry Neurologic patellar DTR's 2+ bilat, sensation intact and PERRL, EOMI, accommodation nl, no face palsy, no dysarthria Psychiatric A+Ox3, euthymic affect Lymphatic no cervical or axillary lymphadenopathy Discharge Data Allergies Allergy/AdvReac Type Severity Reaction Status Date / Time No Known Drug Allergies Allergy Verified 05/10/21 09:35 Consultations 05/10/21 13:37 ED Decision to Admit Stat 05/10/21 16:46 Consult Neurology Routine Ordered Studies 05/10/21 09:21 CT angio head w con Stat CT angio neck with con Stat CT head/brain wo con Stat 05/11/21 08:55 MR brain wo con Routine Hospital Course (1) Dizziness: Suspect BPPV, symptoms resolved with meclizine and Zofran MRI negative for acute stroke does have incidental finding of left carotid stenosis but this is not causing symptoms patient ambulating in the halls, nausea resolved and eating appreciate neurology consult will prescribe meclizine PRN as well as Zofran for home use if he has recurrent or bothersome episodes he can be referred to PT for vestibular techniques follow up with PCP (2) Carotid stenosis: 70% stenosis of the left ICA on CT angiogram, suspect this is incidental and not primary issue Patient on low-dose aspirin along with atorvastatin no stroke on MRI brain will need US monitoring every 6 months defer to PCP (3) HTN (hypertension): Continue atenolol, lisinopril and hydrochlorothiazide (4) Hyperlipidemia: Check fasting lipids Continue atorvastatin (5) Chronic hyponatremia: Sodium at 130 on admission, this appears to be baseline going back to June 2018 We will continue to monitor Patient is on normal saline, okay to discontinue Total Time Total Time Spent Total Time Spent (In Minutes): 25 Total Time Includes: Examination of the Patient, Discharge Planning, Medication Reconciliation and Communication With Other Providers Discharge Plan Discharge Items Patient Disposition: Home - Self-Care Reason For Visit: VERTIGO Discharge Diagnosis: Benign positional vertigo Left carotid stenosis Condition on Discharge: Good Activity: Resume your previous activity Non-emergency contact: Primary Care Provider Call non-emergency contact if: you have any medication questions and your symptoms worsen Follow-up/Referrals: Dominic Douglas MD [Primary Care Provider] - 05/19/21 11:00 am () Diet: Heart Healthy Addtl Attending Provider Instructions: Medications: - MECLIZINE: 25mg every 8 hours NEEDED for dizziness / nausea episodes recommend taking one tablet and laying down and waiting for dizziness to resolve Vertigo, likely benign positional vertigo take meclizine as needed if you continue to have issues, Dr. Douglas can refer you to outpatient physical therapy with Epply maneuvers MRI of the brain was NEGATIVE for acute stroke Left carotid stenosis, 70% not the cause of dizziness, this was incidental finding you should continue to take aspirin and Lipitor you should have this monitored every 6 months with ultrasound, Dr. Douglas can order this if stenosis gets worse he can refer you to vascular surgeon as outpatient Pending Studies at Discharge: No Stand-Alone Forms: My [facility] in [place], Smoking Cessation Medications and DC Order Prescriptions: New meclizine 25 mg Tablet 25 mg PO Q8 PRN (Reason: dizziness) Qty: 30 RF: 1 ondansetron 4 mg tablet,disintegrating 4 mg PO Q8H PRN (Reason: nausea and vomiting) Qty: 20 RF: 1 Continued aspirin 81 mg tablet,delayed release (DR/EC) 81 mg PO QAM Qty: 90 RF: 0 clobetasol 0.05 % cream See Rx Instructions .ROUTE .COMPLEX Qty: 60 RF: 0 atorvastatin 20 mg tablet 20 mg PO QAM RF: 0 atenolol 25 mg tablet 25 mg PO QAM RF: 0 lisinopril 10 mg tablet 10 mg PO QAM RF: 0 hydrochlorothiazide 12.5 mg tablet 12.5 mg PO QAM RF: 0 cholecalciferol (vitamin D3) 2,000 unit capsule 2,000 units PO QAM RF: 0 Discharge Orders: Discharge Order (Routine); Ordered 05/11/21 Ordered By: Mulugeta Thomas Admission Data Admit Date/Time: 05/10/21 15:23 Attending Provider: Mulugeta Thomas Admit Provider: Avila Barnes Primary Care Provider: Dominic Douglas Other Providers: Stanley Valle ; Avila Barnes Other Interventions: Discharge Summary Assessment (RN) Last Done: 05/11/21 11:39 Coding Level of Care Code 64501 OBS Care - Discharge Diagnoses Dizziness R42 Carotid stenosis I65.22 Laterality: left HTN (hypertension) I10 Hypertension type: essential hypertension Hyperlipidemia E78.00; E78.0 Hyperlipidemia type: pure hypercholesterolemia Chronic hyponatremia E87.1
== END 2021-05-11 12:30 | disposition home or self-care (01) ==
LOC: 2N 08:25 → ED 08:25 → SUATTDRO 15:23 → 2N 16:27